=== PATIENT | male | born 1995 | race Caucasian/White ===

== ENCOUNTER 2024-05-08 03:27 | Inpatient (IN) | payer BC, SELFPAY ==
[2024-05-08 04:38] LABS: ALT (SGPT) 7 U/L (8-55); AST (SGOT) 13 U/L (5-34); Albumin 4.2 g/dL (3.5-5.0); Alkaline Phosphatase 72 U/L (40-110); Anion Gap 18 mmol/L (10-20); BUN (Urea Nitrogen) 31 mg/dL (8.9-20.6); Bilirubin, Total 0.3 mg/dL (0.2-1.2); Calc. Creatinine Clearance 0 mL/min (70-130); Calcium 9.7 mg/dL (7.8-10.44); Carbon Dioxide 27 mmol/L (22-29); Chloride 95 mmol/L (98-107); Estimated GFR 126; Globulin 3.6 g/dL (2.4-3.5); Glucose 125 mg/dL (70-105); Potassium 3.5 mmol/L (3.5-5.1); Protein, Total 7.8 g/dL (6.0-8.3); Sodium 136 mmol/L (136-145)
[2024-05-08 04:43] LABS: #Basophils 0.03 10x3/uL (0.0-0.2); #Eosinphils Less than 0.03 10x3/uL (0.0-0.7); %Basophils 0.2 % (0.0-1.0); %Eosinophils 0.1 % (0.0-10.0); %Lymphocytes 10.4 % (21.0-51.0); %Monocytes 18.9 % (0.0-10.0); %Neutrophils 70.1 % (42.0-75.0); Hematocrit 39.2 % (42.0-52.0); Hemoglobin 13.5 g/dL (14.0-18.0); Mean Corpuscular HGB CONC 34.4 g/dL (32.0-36.0); Mean Corpuscular Hemoglobin 30.7 pg (27.0-31.0); Mean Corpuscular Volume 89.1 fL (78.0-98.0); Mean Platelet Volume 9.1 fL (7.4-10.4); Platelet Count 351 10x3/uL (130-400); RBC Distribution Width 18.6 % (11.5-14.5)
[2024-05-08] MEDS ORDERED: Morphine 2 MG/ML VIAL ONE ×2 (05:20→07:39)
[2024-05-08] MEDS ORDERED: Ondansetron PF 4 MG/2 ML Vial ONE (05:20)
[2024-05-08] MEDS ORDERED: Morphine 4 MG/ML VIAL ONE (05:20)
[2024-05-08 08:48] LABS: Lactic Acid 1.08 mmol/L (0.5-2.2)
[2024-05-08] MEDS ORDERED: Acetaminophen 650 MG Suppository PR PRN (09:26)
[2024-05-08] MEDS ORDERED: Ondansetron ODT 4 MG TAB PO PRN (09:26)
[2024-05-08 10:04] LABS: Magnesium 2.7 mg/dL (1.6-2.6)
[2024-05-08 10:27] VITALS: BMI 15.0
[2024-05-08] MEDS: NS 0.9% w/ 20 MEQ KCL 1,000 ML/1,000 ML BAG IV SCH (10:33)
[2024-05-08] MEDS: Acetaminophen 325 MG TAB PO SCH (10:38)
[2024-05-08] MEDS: Lorazepam 2 MG/ML VIAL SLOW IVP PRN (11:12)
[2024-05-08] MEDS ORDERED: Iopamidol 370 76% 100 ML VIAL ONE (12:13)
[2024-05-08] MEDS: Morphine 4 MG/ML VIAL SLOW IVP PRN (12:29)
[2024-05-08] MEDS: Ketorolac Tromethamine 30 MG (1 mL) VIAL IVP SCH ×2 (18:17→18:26)
[2024-05-08] MEDS: Lactated Ringer's 1,000 ML IV SCH (18:17)
[2024-05-08] MEDS: Enoxaparin 30 MG (0.3 mL) SYRINGE SC SCH (20:42)
[2024-05-08] MEDS: Famotidine/PF 20 mg/2ml Vial SLOW IVP SCH (20:42)
[2024-05-09 07:13] LABS: Hematocrit 38.1 % (42.0-52.0); Hemoglobin 12.6 g/dL (14.0-18.0); Mean Corpuscular HGB CONC 33.1 g/dL (32.0-36.0); Mean Corpuscular Hemoglobin 30.4 pg (27.0-31.0); Mean Corpuscular Volume 91.8 fL (78.0-98.0); Mean Platelet Volume 9.4 fL (7.4-10.4); Platelet Count 288 10x3/uL (130-400); RBC Distribution Width 18.9 % (11.5-14.5); Red Blood Cell (RBC) Count 4.15 mill/uL (4.70-6.10)
[2024-05-09 07:25] LABS: ALT (SGPT) 6 U/L (8-55); AST (SGOT) 13 U/L (5-34); Albumin 3.7 g/dL (3.5-5.0); Alkaline Phosphatase 65 U/L (40-110); Anion Gap 18 mmol/L (10-20); BUN (Urea Nitrogen) 33 mg/dL (8.9-20.6); Bilirubin, Total 0.4 mg/dL (0.2-1.2); Calc. Creatinine Clearance 95 mL/min (70-130); Calcium 9.5 mg/dL (7.8-10.44); Carbon Dioxide 31 mmol/L (22-29); Chloride 88 mmol/L (98-107); Estimated GFR 121; Globulin 3.4 g/dL (2.4-3.5); Glucose 91 mg/dL (70-105); Potassium 3.4 mmol/L (3.5-5.1); Protein, Total 7.1 g/dL (6.0-8.3); Sodium 134 mmol/L (136-145)
[2024-05-09 08:00] LABS: Band 24 % (5-11); Large Platelets 1.9 % (0-5); Lymphocytes 9 % (21-51); Monocytes 12 % (0-10); Neutrophil 54 % (42-75); Platelet Adequacy Comment Platelets Normal; RBC Morphology Within Normal Limits; Reactive Lymphocytes 1 % (0-10)
[2024-05-09] MEDS: Nicotine 14 MG PATCH TD PRN (08:54)
[2024-05-09] MEDS: Ondansetron PF 4 MG/2 ML Vial IVP PRN (09:06)
[2024-05-09 10:42] VITALS: BMI 15.0
[2024-05-09] MEDS: Lorazepam 2 MG/ML VIAL SLOW IVP SCH (13:45)
[2024-05-09] MEDS: Potassium Chloride 20 MEQ in Premix 1 BAG IVPB SCH (17:08)
[2024-05-09] MEDS: Lorazepam 2 MG/ML VIAL SLOW IVP PRN (17:52)
[2024-05-09] MEDS: Thiamine HCl 200 MG/2 ML VIAL SLOW IVP SCH (17:52)
[2024-05-09] MEDS: D5W-AA 4.25% with LYTES 1,000 ML IV SCH (17:59)
[2024-05-09] MEDS ORDERED: Multivitamins, Adult 10 ML, Thiamine HCl 100 MG, Folic Acid 1 MG in Dextrose 5 %-0.45 %... IV SCH (18:00)
[2024-05-09 22:47] VITALS: BP 146/87; TEMP 98.2
== END 2024-05-09 23:40 | disposition left against medical advice (07) | DRG 388 ==
LOC: ERS 03:27 → SURG A 09:20
PROVIDERS: ADMIT Internal Medicine; ATTEND Internal Medicine
DX: K56.609 Unspecified intestinal obstruction, unspecified as to partial versus complete obstruction (principal); E43 Unspecified severe protein-calorie malnutrition; Z68.1 Body mass index [BMI] 19.9 or less, adult; E87.1 Hypo-osmolality and hyponatremia; F41.9 Anxiety disorder, unspecified; F17.210 Nicotine dependence, cigarettes, uncomplicated; F19.10 Other psychoactive substance abuse, uncomplicated; E87.6 Hypokalemia; Z88.5 Allergy status to narcotic agent; Z98.890 Other specified postprocedural states; Z59.9 Problem related to housing and economic circumstances, unspecified; Z71.6 Tobacco abuse counseling; Z53.29 Procedure and treatment not carried out because of patient's decision for other reasons
CPT/HCPCS: 36415; 74018; 74022; 74177; 80053; 83605; 83690; 83735; 85025; J1650; J1885; J2060; J2272; J2405; J3411; J3480; J3490; J7120; Q9967